=== PATIENT | male | born 1925 | race African-American/Black ===

== ENCOUNTER 2017-03-19 01:22 | Emergency (ER) ==
[2017-03-19 01:41] VITALS: BP 126/72; TEMP 99; BMI 20.9
--- NOTE | 2017-03-19 02:20 | ED.PDOC ---
General ED Provider: Dr. CORNEL HENDRICKSON Chief Complaint: Syncope Stated Complaint: patient was seen lossing conciousness while on the couch. His family was not able to take him up for 5 mins. He had some shaking and forming at the mouth during this time. Blood glucose checked at home and was 126 Time Seen by Physician: 02:20 Mode of Arrival: Ambulance Information Source: Patient, Family Exam Limitations: No limitations, Other (hard of hearing. ) Nursing and Triage Documentation Reviewed and Agree: Yes Neurological Complaint Exam - Syncope/Near Syncope Complaint/Exam Onset/Duration: 5 min Symptoms Are: Resolved Number of Episodes: 1 Episodes Witnessed: Yes Loss of Consciousness: Yes Associated Head Trauma: No Activity at Onset: With exertion (after a bowel movement ) Associated Signs and Symptoms: Reports: Pain, Decreased oral intake. Denies: Vomiting, Diarrhea, GI blood loss, Short of air, Chest pain, Palpitations, Diaphoresis, Lightheadedness, Dizziness, Weakness, AMS, Numbness, Headache, Seizure, Remote head trauma, Recent head trauma Cardiac Risk Factors: Reports: Hypertension GI Bleed Risk Factors: Reports: None Dysrhythmia Risk Factors: Reports: >45 years old JVD Present: Yes Carotid Bruit Present: No Rectal Heme Positive: No Glascow Coma Scale (see protocol): 15 Nystagmus Present: No Gag Reflex Present: Yes Meningeal Signs Positive: No Focal Weakness: Present: None Focal Sensory Loss: Present: None Gait: Unable [id number]: Normal Findings Romberg Test Positive: No Babinski Sign: Negative Right, Negative Left Heel to Toe Normal: Yes Cely-Hallpike Test Positive: No Differential Diagnoses: CVA, TIA Quality Indicators for Cardiac Chest Pain: EKG in 10min. Quality Indicators for AMI: EKG in 10min. Review of Systems - Review Of Systems Constitutional: Reports: Weakness Eyes: Reports: No symptoms Ears, Nose, Mouth, Throat: Reports: No symptoms Respiratory: Reports: No symptoms Cardiac: Reports: No symptoms GI: Reports: No symptoms : Reports: No symptoms Musculoskeletal: Reports: Joint pain Skin: Reports: No symptoms Neurological: Reports: Anxiety Endocrine: Reports: No symptoms Hematologic/Lymphatic: Reports: No symptoms All Other Systems: Reviewed and Negative Past Medical History - Past Medical History Previously Healthy: Yes Endocrine: Reports: Hyperthyroid Cardiovascular: Reports: None Respiratory: Reports: None Hematological: Reports: None Gastrointestinal: Reports: None Genitourinary: Reports: None Neuro/Psych: Reports: None Musculoskeletal: Reports: Arthritis Cancer: Reports: None Other Pertinent Past Medical History: Left hip pain for months. - Surgical History General Surgical History: Reports: Appendectomy, Cholecystectomy, Hernia Repair - Family History Family History: Reports: Unknown - Social History Smoking Status: Former smoker Hx Substance Use: No Alcohol Screening: Occasionally - Immunizations Tetanus Shot up to Date: (UNKNOWN) Physical Exam - Physical Exam Appearance: Ill-appearing, Well-nourished Ill-appearing: Mild Pain Distress: Severe Eyes: ADAN, EOMI, Conjunctiva clear ENT: Ears normal, Nose normal, Oropharynx normal Neck: Supple Respiratory: Airway patent, Breath sounds clear, Breath sounds equal, Respirations nonlabored Cardiovascular: RRR, Pulses normal, No rub, No murmur GI/: Soft, Nontender, No masses, Bowel sounds normal, No Organomegaly Musculoskeletal: Normal strength, No edema, No calf tenderness, Limited ROM (on the right hip ) Skin: Warm, Dry, Normal color Neurological: Sensation intact, Motor intact, Reflexes intact, Cranial nerves intact, Alert, Oriented Psychiatric: Anxious Interpretation - Radiology Interpretation Radiology Interpretation By: Radiologist Radiology Results: Negative Exam Interpreted: CT Scan (Head, Pelvis, c spine.) Radiology Interpretation By: Radiologist Radiology Results: No acute changes Exam Interpreted: CT Scan (arthritis no fracture ) - Sales And Merchandising Representative Rate: Normal Rhythm: Sinus Ectopy: PVCs - EKG Interpretation Time of EKG #1: 02:08 Rate: Normal Rhythm: Sinus Ectopy: PVCs [place]: NL ST Segment: Normal Interpretation: Sinu Rhythm with frequest PVSs Re-Evaluation - Re-Evaluation Time of Re-Evaluation: 03:50 Status: Improved Pain Level: much improved. Appearance: Other (Less distressed) Critical Care Note - Critical Care Note Total Time (mins): 30 Course - Course Hematology/Chemistry: 03/19/17 02:25 03/19/17 02:25 Orders, Labs, Meds: Lab Review 03/19/17 02:25 WBC 7.81 RBC 3.88 L Hgb 11.7 L Hct 33.1 L MCV 85.3 MCH 30.2 MCHC 35.3 RDW Coeff of Jj 14.7 Plt Count 129 L Immature Gran % (Auto) 0.4 Neut % (Auto) 85.6 Lymph % (Auto) 5.2 L [place] % (Auto) 8.3 Eos % (Auto) 0.4 Baso % (Auto) 0.1 Immature Gran # (Auto) 0.0 Neut # 6.7 Lymph # 0.4 L [place] # 0.7 Eos # 0.0 Baso # 0.0 Sodium 141 Potassium 3.7 Chloride 108 H Carbon Dioxide 25 Anion Gap 11.7 BUN 15 Creatinine 1.06 Estimated GFR (MDRD) 80.00 BUN/Creatinine Ratio 14.15 Glucose 101 Calcium 9.1 Total Bilirubin 0.74 AST 19 ALT 9 L Alkaline Phosphatase 56 Total Creatine Kinase 95 Total Protein 6.9 Albumin 3.5 Globulin 3.4 Albumin/Globulin Ratio 1.03 Orders Category Date Time Status EKG-(ED ONLY) Stat CARDIO 03/19/17 02:15 Completed IV [ED IV/MEDIPORT/POWERPORT] .ONCE EMERGENCY 03/19/17 03:02 Active CBC W/ AUTO DIFF Stat LAB 03/19/17 02:25 Completed COMPREHENSIVE METABOLIC PANEL Stat LAB 03/19/17 02:25 Completed CREATINE KINASE Stat LAB 03/19/17 02:25 Completed 0.9 % Sodium Chloride [Saline Flush] MEDS 03/19/17 03:02 Ordered 1 syr IVF PRN PRN Ketorolac Tromethamine [Toradol] MEDS 03/19/17 03:04 Discontinued 30 mg IVP ONCE STA Morphine Sulfate [Morphine 4 mg/ml Syringe] MEDS 03/19/17 02:47 Discontinued 4 mg IVP ONCE STA Ondansetron HCl/Pf [Zofran 4 mg/2 ml] MEDS 03/19/17 02:47 Discontinued 4 mg IVP ONCE STA Sodium Chloride 0.9% [Sodium Chloride] 1,000 ml MEDS 03/19/17 02:[address] CERVICAL SPINE W/O CONTRAST Stat RADS 03/19/17 02:[address] HEAD W/O CONTRAST Stat RADS 03/19/17 02:[address] PELVIS W/O CONTRAST Stat RADS 03/19/17 03:06 Completed Medications Generic Name Dose Route Start Last Admin Trade Name Freq PRN Reason Stop Dose Admin Sodium Chloride 1 syr 03/19/17 03:02 03/19/17 03:05 Saline Flush IVF 1 syr PRN PRN Administration To flush IV Discontinued Medications Generic Name Dose Route Start Last Admin Trade Name Freq PRN Reason Stop Dose Admin Sodium Chloride 1,000 mls @ 1,000 mls/hr 03/19/17 02:59 03/19/17 03:05 Sodium Chloride IV 03/19/17 03:58 1,000 mls/hr BOLUS STA Administration Ketorolac Tromethamine 30 mg 03/19/17 03:04 03/19/17 03:11 Toradol IVP 03/19/17 03:05 30 mg ONCE STA Administration Morphine Sulfate 4 mg 03/19/17 02:47 03/19/17 02:54 Morphine 4 Mg/Ml Syringe IVP 03/19/17 02:48 4 mg ONCE STA Administration Ondansetron HCl 4 mg 03/19/17 02:47 03/19/17 02:52 Zofran 4 Mg/2 Ml IVP 03/19/17 02:48 4 mg ONCE STA Administration Vital Signs: Temp Pulse Resp BP Pulse Ox 03/19/17 01:23 99 F 83 16 126/72 95 Departure - Departure Time of Disposition: 03:50 Disposition: HOME SELF-CARE Discharge Problem: Right hip pain Syncope Qualifiers: Syncope type: vasovagal syncope Qualifier Code: (R55) Syncope and collapse Instructions: Syncope in Older Adults (ED), Arthralgia (ED) Condition: Stable Pt referred to PMD for follow-up: Yes Additional Instructions: FOllow up with PC in 3 days Rest Return if worse Push fluids Prescriptions: Hydrocodone/Acetaminophen [[place] 5-325 Tablet] 1 tab PO Q6HR PRN #14 tablet PRN Reason: PAIN Allergies/Adverse Reactions: Allergies No Known Drug Allergies Adverse Reaction (Verified 03/19/17 01:41) Home Medications: Ambulatory Orders Amlodipine Besylate 10 mg PO DAILY 03/19/17 Benazepril HCl [Lotensin] 20 mg PO DAILY 03/19/17 Doxazosin Mesylate [Cardura] 4 mg PO DAILY 03/19/17 Hydrocodone/Acetaminophen [[place] 5-325 Tablet] 1 tab PO Q6HR PRN #14 tablet Disposition Discussed With: Patient, Family
[2017-03-19 02:27] LABS: BASOPHILS % (AUTO) 0.1 % (0.0-3.0); EOSINOPHILS % (AUTO) 0.4 % (0.0-7.0); HEMATOCRIT 33.1 % (42.0-52.0); HEMOGLOBIN 11.7 g/dl (14.0-18.0); IMMATURE GRANULOCYTE % (AUTO) 0.4 % (0.0-5.0); LYMPHOCYTES # (AUTO) 0.4 K/uL (0.60-3.4); LYMPHOCYTES % (AUTO) 5.2 (10.0-50.0); MEAN CORPUSCULAR HEMOGLOBIN 30.2 pg (27.0-31.0); MEAN CORPUSCULAR HGB CONC 35.3 (31.8-35.4); MEAN CORPUSCULAR VOLUME 85.3 fl (80.0-94.0); MONOCYTES # (AUTO) 0.7 K/uL (0.4-2.0); MONOCYTES % (AUTO) 8.3 (0-10); NEUTROPHILS # (AUTO) 6.7 K/ul (2.0-6.9); NEUTROPHILS % (AUTO) 85.6; PLATELET COUNT 129 10^3/uL (140-440); RED BLOOD COUNT 3.88 10^6/ul (4.70-6.10); WHITE BLOOD COUNT 7.81 K/ul (4.2-10.2)
[2017-03-19 02:46] LABS: ALBUMIN 3.5 g/dL (3.4-5.0); ALBUMIN/GLOBULIN RATIO 1.03; ANION GAP 11.7; BILIRUBIN,TOTAL 0.74 mg/dL (0.00-1.20); BUN/CREATININE RATIO 14.15; CALCIUM 9.1 mg/dL (8.2-10.2); CREATININE 1.06 mg/dL (0.60-1.10); POTASSIUM 3.7 mmol/L (3.5-5.1); TOTAL PROTEIN 6.9 g/dL (5.8-8.1)
[2017-03-19] MEDS ORDERED: ZOFRAN 4 MG/2 ML IVP STA (02:47)
[2017-03-19] MEDS ORDERED: MORPHINE 4 MG/ML SYRINGE IVP STA (02:47)
[2017-03-19] MEDS ORDERED: SODIUM CHLORIDE 1,000 ML IV STA (02:59)
--- NOTE | 2017-03-19 03:02 | CT ---
EXAM: CT scan brain without contrast HISTORY: Fall COMPARISON: CT scan brain 02/06/2008 FINDINGS: Contiguous axial images obtained from the skull base to the convexities without contrast utilizing 5-mm collimation. Sagittal and coronal reconstructions were imaged and reviewed.. The v entricles and CSF spaces are prominent compatible with age appropriate atrophy.. There is periventr icular hypodensity noted compatible with chronic microvascular disease.. Mineralization is seen wit hin the right basal ganglia. There is 2 mm punctate hyperdense focus in the right frontal lobe.. Si milar findings are seen anteriorly within the corpus callosum measuring 2.7 mm No abnormal extra-ax ial fluid collections identified. Visualized paranasal sinuses and mastoid air cells are clear. At herosclerotic changes are seen involving the bilateral vertebral and cavernous internal carotid mikala ekvin. The calvarium is intact. IMPRESSION: Punctate hyperdense foci right frontal lobe and corpus callosum which may be related to focal contus ion versus calcification.. Age appropriate atrophy with chronic microvascular disease. ASVD.
[2017-03-19] MEDS ORDERED: TORADOL IVP STA (03:04)
--- NOTE | 2017-03-19 03:10 | CT ---
EXAM: CT scan cervical spine HISTORY: Fall COMPARISON: None. FINDINGS: Contiguous axial images were obtained through the cervical spine utilizing 2-mm collimati on. Sagittal and coronal reconstructions were imaged and reviewed... There is loss of normal cervi joseph lordosis suggesting paraspinal muscle spasm. There is no acute fracture or dislocation. Degene rate disc disease is noted at C3-C4 through C6-C7. There is a chronic compression deformity of the s uperior endplate of T3. The facet joints are intact There is multilevel facet arthropathy with mul tilevel neural foraminal narrowing. IMPRESSION: Loss normal cervical lordosis suggesting paraspinal muscle spasm. Facet arthropathy with multilevel neural foraminal narrowing. No acute findings.
--- NOTE | 2017-03-19 04:00 | CT ---
EXAM: CT scan pelvis without contrast HISTORY: Left hip pain COMPARISON: CT scan abdomen pelvis 12/18/2008 FINDINGS: Contiguous axial images obtained through the pelvis without contrast utilizing 3-mm colli mation. Sagittal and coronal reconstructions were imaged and reviewed.. Atherosclerotic changes ar e seen involving the abdominal aorta and iliacs. There is nonspecific fluid filled small bowel see n within the visualized abdomen and pelvis. There is a small simple cyst within the visualized live r. The prostate gland is enlarged.. Free fluid seen in the pelvis. Marked osteoarthritic degenera tive changes noted about the right hip joint characterized by concentric joint space narrowing with subchondral cystic changes on both sides of the joint. Minimal degenerative changes noted about the left hip joint. There is no acute fracture or dislocation IMPRESSION: Marked osteoarthritic degenerative changes right hip joint with minimal changes left hip joint. ASVD. Probable small bowel ileus. Free fluid dependent pelvis. Prostatic enlargement.
== END 2017-03-19 04:30 | disposition home or self-care (01) ==
LOC: EDBD 01:22 → ED 01:22
DX: R55 Syncope and collapse (principal); M25.551 Pain in right hip; I10 Essential (primary) hypertension; E05.90 Thyrotoxicosis, unspecified without thyrotoxic crisis or storm
CPT/HCPCS: 36415; 80053; 82550; 85025; 93005; 93010; 96361; 96374; 96375; 99283